=== PATIENT | female | born 1940 | race Caucasian/White ===

== ENCOUNTER 2018-03-23 05:13 | Inpatient (IN) ==
[2018-03-23] MEDS ORDERED: FAMOTIDINE PB 20 MG/50 ML BAG IV ONE (06:00)
[2018-03-23] MEDS ORDERED: TRANEXAMIC ACID 1,000 MG in NS 100 ML IV ONE ×2 (06:00→07:00)
[2018-03-23] MEDS ORDERED: LIDOCAINE 1% (10mg/ml) 2mL INJ PF SDV ID ONE (06:00)
[2018-03-23] MEDS ORDERED: DEXAMETHASONE 4 MG/ML INJECTION IVP ONE (06:00)
[2018-03-23] MEDS ORDERED: ONDANSETRON 4 MG/2 ML INJECTION IVP ONE (06:00)
[2018-03-23] MEDS ORDERED: MELOXICAM 15 MG TABLET PO ONE (06:00)
[2018-03-23] MEDS ORDERED: ACETAMINOPHEN 500 MG TABLET PO ONE (06:00)
[2018-03-23] MEDS ORDERED: METOCLOPRAMIDE 10mg/2ml INJECTION IVP ONE (06:00)
[2018-03-23] MEDS: LR 1,000 ML IV SCH ×2 (06:05→07:34)
[2018-03-23] MEDS: NOZIN NASAL SWAB NAS SCH ×5 (06:08→21:25)
[2018-03-23] MEDS ORDERED: VANCOMYCIN 1,000 MG INJECTION ONE (06:59)
--- NOTE | 2018-03-23 06:59 | Anesthesia Preoperative Report ---
Anesthesia Preoperative Record - Date and Time Date: 03/23/18 Preoperative Diagnosis: Lt TKA M17.12 NPO Since Date: 03/22/18 NPO Since Time: 23:00 Allergies/Adverse Reactions: Allergies Allergy/AdvReac Type Severity Reaction Status Date / Time hydrocodone AdvReac Unknown n/v Verified 03/23/18 05:48 - Vital Signs Vital Signs: Temperature 97.6 F 03/23/18 05:35 Pulse Rate 57 L 03/23/18 05:57 Respiratory Rate 13 03/23/18 05:35 Blood Pressure 146/65 H 03/23/18 05:35 Pulse Oximetry 98 03/23/18 05:35 Height and Weight: Height 5 ft 2 in Weight 62.5 kg Body Mass Index 25.2 - Medications Inpatient Medications: Current Medications Cefazolin Sodium (Kefzol) 1 g IVP PREOP ONE Stop: 03/23/18 07:01 Epinephrine HCl 0.25 mg/Bupivacaine HCl 30 ml/Ketorolac Tromethamine 60 mg/ Sodium Chloride 62.25 mls @ 0 mls/hr OPSITE INTRAOP ONE; Per Protocol PRN Reason: Protocol Stop: 03/23/18 08:01 Tranexamic Acid 1,000 mg/ (Sodium Chloride) 110 mls @ 660 mls/hr IV INTRAOP ONE Stop: 03/23/18 07:09 Lactated Ringer's (Lactated Ringers) 1,000 mls @ 50 mls/hr IV .Q20H [facility] Last Admin: 03/23/18 06:05 Dose: 50 mls/hr Isopropyl Alcohol (Nozin Nasal Swab) 1 each YO Q1M [facility] Stop: 03/23/18 09:03 Last Admin: 03/23/18 06:13 Dose: 1 each Sodium Chloride (Iv Flush) 10 - 80 ml IV PRN PRN PRN Reason: [place] Home Medications: Home Medications Medication Instructions Recorded Confirmed Type Levothyroxine Sodium 50 mcg PO DAILY #0 09/17/10 03/23/18 History Mobic (Meloxicam) 7.5 mg tablet 7.5 mg PO DAILY 03/08/18 03/23/18 History CALCIUM CARBONATE Chewable [Tums] 500 mg PO DAILY 03/16/18 03/23/18 History Cholecalciferol (Vitamin D3) 1 tab PO DAILY 03/16/18 03/23/18 History [Vitamin D3] Cyanocobalamin (Vitamin B-12) 1 tab PO DAILY 03/16/18 03/23/18 History [Vitamin B-12] Is Patient on Beta Weston?: No - Medical History Respiratory: DENIES: Sleep Apnea Gastrointestional: Reports: Gastroesophageal Reflux Disease (occassionally, none recently) Neuro/Musculoskeletal: Reports: Other (osteopenia) Renal/Endocrine: Reports: Thyroid Disease (hypothyroid) Other History: DENIES: Anesthesia Reactions - Surgical History Cardiac Surgeries/Treatments: Reports: Cardiac Catheterization (2009-normal) Musculoskeletal Surgery/Tx: Reports: Total Knee Replacement (Rt TKA 2009) Anesthesia Reactions: None Hx Family Anesthesia Reaction: No History of Motion Sickness: No - Social History Smoking Status: Never smoker Hx Chewing Tobacco Use: No Second Hand Exposure: No Substance Use Type: does not use Alcohol Intake: never - Pertinent Findings EKG: Sinus Bradycardia - Physical Exam Respiratory Exam: Present: lungs clear, bilateral breath sounds equal Cardiovascular Exam: Present: regular rate and rhythm - Airway Assessment Mallampati Score: II TMD: 2 Fingerbreadths Neck Extension: good Teeth: upper dentures, lower dentures Overall Assessment: may be difficult intubation - ASA ASA Score: 2 - Plan Anesthesia: General TIVA, Neuroaxial Regional/Trunk Block: Spinal - Discussion Discussion: Discussed risks/options/alternatives of anesthesia and questions answered. Patient consents. Nursing pain assessment noted. Present for Discussion: spouse Attestation Statement: Prior to the delivery of any anesthetic medication, I examined the patient, developed the plan, obtained the patient's consent and discussed the risk and benefits of the procedure with the patient/guardian. - Additional Information Seen by Anesthesia: Yes
[2018-03-23] MEDS ORDERED: CEFAZOLIN 1 G INJECTION IVP ONE (07:00)
[2018-03-23] MEDS ORDERED: MIDAZOLAM 2mg/2ml INJECTION ONE (07:09)
[2018-03-23] MEDS ORDERED: PROPOFOL 500 MG/50 ML VIAL ONE (07:10)
[2018-03-23] MEDS ORDERED: LIDOCAINE 2% (100mg/5mL) 5ml PF SDV ONE (07:11)
[2018-03-23] MEDS ORDERED: EPHEDRINE 50mg/ml INJECTION ONE (07:43)
[2018-03-23] MEDS ORDERED: SALINE FLUSH 10ml SYRINGE ONE (07:43)
[2018-03-23] MEDS ORDERED: VANCOMYCIN 1,000 MG INJECTION IAR ONE (07:45)
[2018-03-23] MEDS ORDERED: EPINEPHrine PF 0.25 MG, BUPIVACAINE 0.25% PF 30 ML, KETOROLAC INJ 60 MG in NS 30 ML OPSITE ONE (08:00)
[2018-03-23] MEDS ORDERED: ROPIVACAINE 0.5% (5mg/ml) 30ml INJ ONE (08:47)
--- NOTE | 2018-03-23 08:48 | Operative Note ---
- Procedure Preoperative Diagnosis: Left knee primary degenerative joint disease Postoperative Diagnosis: Same as preoperative diagnosis. Surgeon: Avni Avery MD Counter Person: Tommy Pitts Complications: None. Anesthesia: Spinal. Estimated Blood Loss: See Anesthesia Record. Fluids: Please see Anesthesia Record. Description of Procedure: Mrs. Lu and her left knee were identified and marked in the preoperative holding area. She was brought back to the operating suite. Spinal anesthetic was administered and she was placed supine on the operating table. The left lower extremity was prepped and draped in my normal sterile fashion. Timeout was performed. The [employer] robotic arm was used during the surgery. She had a fixed varus deformity with a slight flexion contracture. A standard anterior midline incision followed by medial parapatellar arthrotomy was performed. Anterior fat pad and meniscus were removed. The patella was everted and a patella osteotomy was performed leaving 13 mm of bone. She had complete loss of cartilage in the medial compartment eburnation of the bone. Tibial and femoral arrays and checkpoints were placed both within the original incision. The bone was then registered with the [employer] robot. Osteophytes were removed and gaps were captured both 90 and 0 degrees with correction. [employer] robotic software was utilized to obtain 19 mm gaps. This was done the placement tibia and 2 of varus in the femur and 1 of varus and externally rotating the femur. The [employer] robotic arm was then used to assist with the bone cuts. Posterior osteophytes and remaining meniscus were removed. Trial components were placed. We used a 3 femur and a 4 tibia with a 11 mm spacer and a 32 patella. She slightly hyperextended so I placed a 13 mm spacer in partially released the MCL with 18-gauge needle. After which she tracked well and was well balanced throughout range of motion. The arrays were then removed and the knee exsanguinated and the tourniquet inflated to 250 mmHg. The tibia was then stamped the proper rotation. I then cemented the components into place and allowed them to cure in extension. During this time the tourniquet was let down and hemostasis was obtained with electrocautery. After the cement had cured the knee again was taken through range of motion and was well balanced and tracked well. After a final thorough irrigation with normal saline as well as Betadine 1 g vancomycin powder was placed into the knee joint. We then closed the capsule with #1 Vicryl. I then left my assistant clinical nurse manager closed the subcutaneous tissue with both 2-0 Vicryl in an interrupted fashion as well as a running 0 V-lock barbed suture. The subcutaneous tissue closed with a raegan Monoderm. Mediplex dressing will be placed and the patient will be taken back to the recovery room under the care of anesthesia.
[2018-03-23] MEDS ORDERED: SALINE FLUSH 10ml SYRINGE IV PRN (08:56)
--- NOTE | 2018-03-23 09:43 | Anesthesia Postoperative Note ---
- Date and Time Date: 03/23/18 Time: 09:40 - Status Patient Participated in Evaluation: Patient Participated in Person Vital Signs: Temperature 97.7 F 03/23/18 09:27 Pulse Rate 60 03/23/18 09:35 Respiratory Rate 20 03/23/18 09:35 Blood Pressure 129/66 03/23/18 09:35 Pulse Oximetry 93 03/23/18 09:35 Respiratory Function: Airway Patent, Regular Respirations Cardiovascular Function: Regular Pulse Mental Status: Alert and Oriented Pain Intensity: 0 Hydration: IV Infusing Complications During Recover: None Apparent - Follow-Up Instructions Instructions: Per Surgeon
[2018-03-23] MEDS ORDERED: TRAMADOL 50 MG TABLET PO PRN (09:55)
[2018-03-23] MEDS ORDERED: NOZIN NASAL SWAB NAS ONE (09:55)
[2018-03-23] MEDS ORDERED: ONDANSETRON 4 MG/2 ML INJECTION IVP PRN (09:55)
[2018-03-23] MEDS ORDERED: DiphenhydrAMINE 25 MG CAPSULE PO PRN (09:55)
[2018-03-23] MEDS ORDERED: LORazepam 1 MG TABLET PO PRN (09:55)
[2018-03-23] MEDS ORDERED: DiphenhydrAMINE 50 MG/ML INJECTION IVP PRN (09:55)
[2018-03-23] MEDS: NS 1,000 ML IV SCH ×2 (10:04→22:19)
[2018-03-23 10:17] VITALS: BMI 26.2
--- NOTE | 2018-03-23 10:34 | XRay Report ---
Indication: postoperative image PROCEDURE: XR knee LT 2V: Encounter: Initial Comparison: March 08, 2018 Findings: Postoperative changes of left total knee replacement are seen. There is expected postoperative subcutaneous gas. No evidence of hardware failure or acute fracture. No retained radiopaque surgical instruments or sponges. Overlying material causing artifact. Impression: New left total knee prosthesis without evidence of immediate complication. .
--- NOTE | 2018-03-23 11:21 | Anesthesia Procedure Note ---
Peripheral Nerve Blockade - Procedure Physician: Melecio Avery MD Date: 03/23/18 Surgical Procedure: left TKA Discussion: Discussed risks/options/alternatives of anesthesia and questions answered. Patient consents. Nursing pain assessment noted. Block Start: 09:09 Block Stop: 09:11 Blocked Employed: Adductor Canal Indication: Post-Operative Pain Approach: Left Side Confirmed Position: Supine Patient: Consent, Risks/Benefits Discussed, Informed, Post Block Act. Discussed IV Sedation: No (spinal active) Initial Vital Signs: Temperature 97.6 F 03/23/18 05:35 Temperature Source Oral 03/23/18 05:35 Pulse Rate 53 L 03/23/18 05:35 Respiratory Rate 13 03/23/18 05:35 Blood Pressure 146/65 H 03/23/18 05:35 Blood Pressure Mean 92 03/23/18 05:35 Blood Pressure Position Sitting 03/23/18 05:35 Pulse Oximetry 98 03/23/18 05:35 Oxygen Delivery Method 03/23/18 05:35 Post Vital Signs: Temperature 96.5 F L 03/23/18 10:09 Pulse Rate 60 03/23/18 10:24 Respiratory Rate 16 03/23/18 09:54 Blood Pressure 129/73 03/23/18 10:24 Pulse Oximetry 97 03/23/18 10:24 Initial Pain Pain Score: 0 Post Block Pain Score: 0 Prep: Chlorhexadine/ETOH Ultrasound Used?: Yes - Injectate Ropivacaine (%): 0.5 Ropivacaine (mL): 30 Injection: Injection made incrementally with constant monitoring and aspiration every ml
[2018-03-23] MEDS: ACETAMINOPHEN 325 MG TABLET PO SCH ×3 (12:25→21:25)
[2018-03-23] MEDS: CEFAZOLIN 1 G in NS 100 ML IV SCH ×2 (15:09→22:19)
[2018-03-23] MEDS ORDERED: SENNOSIDES 8.6 MG TABLET PO SCH (21:00)
[2018-03-23] MEDS: ASPIRIN *EC* 81 MG TABLET PO SCH (21:25)
[2018-03-23] MEDS: DOCUSATE SODIUM 100 MG CAPSULE PO SCH (21:26)
[2018-03-23 23:55] VITALS: RESP 16
[2018-03-24] MEDS: NOZIN NASAL SWAB NAS SCH (05:51)
[2018-03-24] MEDS ORDERED: LEVOTHYROXINE 50 MCG TABLET PO SCH (06:30)
[2018-03-24 07:25] VITALS: O2SAT 98
--- NOTE | 2018-03-24 07:52 | Orthopedic Progress Note ---
Date: Date: 03/24/18 Time: 747 Subjective/Severity of Illness: Joann is doing great. She has been mobile with good tolerance. No CP, cough or SOA. No GI complaints. Hgb 10.8 , VSS , Dressing dry. N/V intact. Orthopedic Exam Vital signs: Temperature 97.0 F 03/24/18 07:24 Pulse Rate 70 03/24/18 07:24 Respiratory Rate 16 03/24/18 04:05 Blood Pressure 124/68 03/24/18 07:24 Pulse Oximetry 98 03/24/18 07:24 - Constitutional General Appearance: Present: alert, cooperative, no acute distress - Respiratory Exam Present: non-labored - Cardiovascular Exam Present: pedal pulses intact - Extremities Exam Present: pulses intact. Absent: calf tenderness - Dressing Dressing: dry, no drainage - Integumentary Exam Present: pink, warm, dry - Neurological Exam Present: intact to light touch, no deficits - Psychiatric Exam Present: alert, normal affect - Labs Result Diagrams: 03/24/18 04:20 03/24/18 04:20 Abnormal lab results 03/24/18 03/24/18 Range/Units 04:20 04:20 Hgb 10.8 L (12-16) GM/DL Chloride 109 H (98-107) MEQ/L H & H 03/24/18 Range/Units 04:20 Hgb 10.8 L (12-16) GM/DL Orthopedic Assessment and Plan (1) Primary osteoarthritis of left knee Status: Acute Assessment and Plan: Aspirin protocol for VTE prophylaxis x 6 weeks SCD's for added DVT coverage. Mild anemia noted. Hgb drop is within expected range with this procedure. No acute intervention expected. Encourage a MVI on discharge. PT/OT services to improve independent function. Out pt therapy has been arranged. Discharge Planning per Case Management. Expect discharge later today. - Anticoagulation Therapy Anticoagulation: ASA 81 mg PO BID x6 weeks Hospital Course Summary Disclaimer: The visit summary below is not to be considered part of the above Progress Note.
[2018-03-24] MEDS ORDERED: MELOXICAM 7.5 MG TABLET PO SCH (08:00)
[2018-03-24] MEDS: ASPIRIN *EC* 81 MG TABLET PO SCH (08:28)
[2018-03-24] MEDS: ACETAMINOPHEN 325 MG TABLET PO SCH ×2 (08:28→14:09)
[2018-03-24] MEDS: DOCUSATE SODIUM 100 MG CAPSULE PO SCH (08:28)
--- NOTE | 2018-03-24 08:41 | Discharge Summary ---
Orthopedic Discharge Info Date of admission: 03/23/18 05:13 Anticipated date of discharge: 03/24/18 Primary care physician: Jazzmine Gibbs MD Attending Physician: Melecio Avery MD Consults: 03/23/18 05:24 Consult to Anesthesiology [CONS] Routine Reason For Exam: Preoperative Assessment 03/23/18 09:55 Case Management Consult [CONS] Routine Reason For Exam: Discharge Planning DME-Walker [CONS] Routine Height: 5 ft 2 in Weight: 62.5 kg Total Joint Outpatient Therapy [CONS] Routine Comment: Remove dressing in 2 weeks - Discharge Diagnosis (1) Primary osteoarthritis of left knee Status: Acute - Procedures Procedures: Procedures Rt Total knee replacement (09/17/10) Lt TKA 03/23/18. - Laboratory Result Diagrams: 03/24/18 04:20 03/24/18 04:20 Laboratory: Abnormal lab results 03/24/18 03/24/18 Range/Units 04:20 04:20 Hgb 10.8 L (12-16) GM/DL Chloride 109 H (98-107) MEQ/L H & H 03/24/18 Range/Units 04:20 Hgb 10.8 L (12-16) GM/DL Orthopedic Discharge HPI - HPI Comments This patient was admitted for elective surgical tx of end stage degenerative joint disease that failed to respond to conservative treatment. Further details of this is found in the admission H&P. Orthopedic Hospital Course Hospital course: 03/24/18 08:39 After appropriate preoperative clearance and signing of operative consent, the patient was given IV antibiotics, according to orthopedic protocol. The patient was taken to the operating room and underwent elective left total knee arthroplasty. Following surgery, antibiotics were discontinued less than 24 hours according to joint protocol. Aspirin was initiated and SCDs added for DVT prevention. The dressing was clean, dry, and intact. Pain control was obtained via multimodal approach. Bowel motivation addressed with scheduled and PRN medications. Early mobilization was initiated through PT services. Discharge arrangements made by a collaborative effort between the patient and Case Management. Aspirin protocol for VTE prophylaxis x 6 weeks Mild anemia noted. Hgb drop is within expected range with this procedure. No acute intervention expected. Encouraged a MVI on discharge. Out pt therapy has been arranged. Follow-up is scheduled in 2-3 weeks. Discharge instructions given by orthopedic providers and nursing staff at discharge. Discharge condition was good. Care extended to > 2 midnight stays?: No Discharge Plan - Med Rec/Dispo Referrals/Follow Up: Leidy Duncan APRN [Advanced Practice Nurse] - 04/14/18 9:45 am [facility] Instructions: [facility] Ortho Postop Instructions Prescriptions: New Acetaminophen [Tylenol] 650 mg PO QID tablet Aspirin *EC* [Ecotrin] 81 mg PO BID tablet Docusate Sodium [Colace] 100 mg PO BID capsule Milk of Magnesia [Mom] 30 ml PO DAILY udc PEG 3350 17gm PACKET [Miralax] 17 gm PO DAILY packet Tramadol [Ultram] 50 - 100 mg PO Q6H PRN #60 tab PRN Reason: Pain Multi-Vitamin + Iron [Theragran - H] 1 tab PO DAILY #30 tablet Continue Levothyroxine Sodium 50 mcg PO DAILY #0 Cyanocobalamin (Vitamin B-12) [Vitamin B-12] 1 tab PO DAILY CALCIUM CARBONATE Chewable [Tums] 500 mg PO DAILY Cholecalciferol (Vitamin D3) [Vitamin D3] 1 tab PO DAILY Mobic (Meloxicam) 7.5 mg tablet 7.5 mg PO DAILY - Disposition 01 Discharged Home, Self-Care - Dismissal Complete Discharge Instructions are:: Incomplete
[2018-03-24] MEDS ORDERED: FALL RISK - PHARMACY CONSULT MC ONE (08:42)
[2018-03-24] MEDS ORDERED: POLYETHYL GLYCOL 3350 17gm PACKET PO SCH (09:00)
[2018-03-24] MEDS ORDERED: CALCIUM CARBONATE Chewable 500mg TABLET PO SCH (09:00)
[2018-03-24] MEDS ORDERED: SENNOSIDES 8.6 MG TABLET PO PRN (09:14)
[2018-03-24] MEDS: NS 1,000 ML IV SCH (11:59)
[2018-03-24 12:07] VITALS: BP 127/62; PULSE 66; TEMP 97.6
[2018-03-25] MEDS ORDERED: BISACODYL 10 MG SUPPOSITORY RECTALLY SCH (20:00)
== END 2018-03-24 15:05 | disposition home or self-care (01) | DRG 470 ==
LOC: NMC.PERIOP 05:13 → SRG 09:45
PROVIDERS: ADMIT Orthopaedic Surgery; ATTEND Orthopaedic Surgery